=== PATIENT | male | born 1945 | race Caucasian/White ===

== ENCOUNTER 2017-08-31 10:00 | Outpatient (RCR) | payer OTHER, MEDICARE, SELFPAY ==
--- NOTE | 2017-07-25 11:05 | HMH.PTOPEV ---
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 Pt reports L > R sided neck pain, with intermittent radicular s/s down L UE into bicep area. Pt also reports L > R sided LBP with intermittent L LE radicular s/s into L ankle. Imaging studies have revealed degenerative changes in both the lumbar and cervical spine. Chief Complaint Pain Stiff Paresthesia Weakness Symptom Type Ache Throb Sharp Dull Numbness Tingling Symptoms Relieved By Rest/Positioning Heat Symptoms Aggravated By Standing Bending/Stooping Physical Activity Lifting Prior Functional Limitations Lifting Housework Standing Bending/Stooping Current Functional Limitations Lifting Housework Standing Bending/Stooping Symptom Description Constant but Variable Level of pain today (0-10) 4 Pain scale - at its best (0-10) 4 Pain scale - at its worst (0-10) 8 Cervical Eval Palpation Cervical Muscles R Cervical Paraspinal L Cervical Paraspinal R CT Junction L CT Junction L Upper Trapezius Cervical/Thoracic Palpation Findings Tenderness Trigger Point Muscle Guarding Posture Head/C-Spine Posture Sitting Position Neutral Position Head/C-Spine Posture Standing Position Neutral Position Flexibility Deficits Upper
== END 2017-08-31 10:01 | disposition home or self-care (01) ==
LOC: PT 10:00
PROVIDERS: Visit Provider Nurse Practitioner Family
DX: M54.5 Low back pain (principal)
CPT/HCPCS: 97010; 97012; 97014; 97035; 97110; G0283

== ENCOUNTER → 2019-07-06 10:56 | Outpatient (CLI) | payer MEDICARE, OTHER, SELFPAY ==
[2019-07-06] VITALS (20 sets, daily range): BP systolic 113–148; BP diastolic 54–74; PULSE 65–74; RESP 16–18; TEMP 36.4–37.1; O2SAT 90–97; BMI 25.8
[2019-07-06 17:19] LABS: Hematocrit 26.5 % (42.0-52.0)
[2019-07-06 17:32] LABS: Hemoglobin 7.9 g/dL (14.1-18.0)
--- NOTE | 2019-07-06 17:45 | PC.NURSE ---
Have paged Dr. Negrete in RE to pts HGB of 7.9. He has been outpatient and recieved 2 units of PRBC's,. Awaiting CB at this time. 1745.
--- NOTE | 2019-07-06 18:03 | PC.NURSE ---
Spoke with Dr. Negrete and he ordered pt to have a repeat peripheral blood draw for a H&H. Have made claudy in lab aware of this. Awaiting lab to draw blood at this time.
[2019-07-06 18:30] LABS: Hematocrit 27.1 % (42.0-52.0); Hemoglobin 7.9 g/dL (14.1-18.0)
--- NOTE | 2019-07-06 18:34 | PC.NURSE ---
Paged Dr. Negrete in RE to HGB still at 7.9 and HCT 27.1. Awaiting cb at this time.
--- NOTE | 2019-07-06 18:54 | INFXCTL.NOTE ---
Did make Dr. Negrete aware of pts H&H as documented on previous note and he stated that pt could be d/cd if stable, which he was and f/[facility]. Did also educate pt and daughter to watch for s/s of bleeding and to come back to ER if symptoms occured. Verbalized understanding. 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 VSS
--- NOTE | 2019-07-06 18:57 | PC.NURSE ---
Addendum entered by Alejandro Pereira RN 07/06/19 19:00: MD is aware of HGB 7.9 and HCT 27.1 Original Note: Spoke with Dr. Negrete and he stated pt could be d/cd if pt was stable in which he was. He stated to f/u mon with [facility] monday. Daughter and pt verbed understanding. Did also educate pt to mx for s/s of bleeding and if they occured to come to ER. Pt asymptomatic upon d/c and VSS. 02 sats 88-97% RA Denied pain/discomfort. Charge and HS aware oif this as well.
== END ==
PROVIDERS: Internal Medicine Adolescent Medicine; PCP Family Medicine; Referring Provider Emergency Medicine; Visit Provider Emergency Medicine
DX: D64.9 Anemia, unspecified (principal); R53.1 Weakness; R53.83 Other fatigue
CPT/HCPCS: 36415; 36430; 85014; 85018; J1642; P9016

== ENCOUNTER 2019-07-26 01:23 | Inpatient (IN) ==
--- NOTE | 2019-07-26 01:33 | Emergency Department Note ---
ED Disposition Clinical Impression: Metastatic sarcoma STEMI (ST elevation myocardial infarction) Qualifiers: Involved coronary artery: unspecified coronary artery Qualified Code(s): I21.3 - ST elevation (STEMI) myocardial infarction of unspecified site Anemia Qualifiers: Anemia type: unspecified type Qualified Code(s): D64.9 - Anemia, unspecified Disposition: Admitted As Inpatient Condition on Discharge: Serious - Critical Care Critical Care Time: Yes Attestation: On , the high probability of a clinically significant, sudden or life threatening deterioration of the following system(s) required my full and direct attention, intervention and personal management. The time I documented below is in addition to time spent performing reported procedures but includes the following listed in this critical care notation. Total Critical Care Time: 30 Vital system(s) involved:: Circulatory Failure My critical care processes included: Assessment & monitoring of V/S, Initial and Re-exams, Data Review/Interpretation, Coordinating Care, Medication Orders and management, Documentation Medical Decision Making - Boaz Inquiry Pt receiving controlled substance: Yes Boaz was queried for this patient: No Reason not queried -: Emergent pt cond-no time Risks and benefits of using a controlled substance: were not discussed with pt by me Vital Signs: 07/26/19 01:24 Temperature 97.8 F Temperature Source Oral Pulse Rate [Right Brachial] 90 Respiratory Rate 18 Blood Pressure [Right Arm] 120/67 Blood Pressure Mean [Right Arm] 84 Blood Pressure Source [Right Arm] Automatic Cuff Blood Pressure Position [Right Arm] Sitting 02 Sat by Pulse Oximetry 93 L Oxygen Delivery Method Room Air - Lab Data Lab Results 07/26/19 01:30: WBC 10.4, RBC 3.26 L, Hgb 7.5 L*, Hct 25.9 L, MCV 79.5 L, MCH 23.1 L, MCHC 29.0 L, RDW 18.2 H, Plt Count 492 H, MPV 7.9, Neut % (Auto) 80.2 H, Lymph % (Auto) 7.2 L, Sullivan % (Auto) 9.6 H, Eos % (Auto) 2.7, Baso % (Auto) 0.3, Neut # (Auto) 8.4 H, Lymph # (Auto) 0.8, Sullivan # (Auto) 1.0, Eos # (Auto) 0.3, Baso # (Auto) 0.0 07/26/19 01:30: Sodium 132 L, Potassium 4.3, Chloride 97 L, Carbon Dioxide 26, Anion Gap 13.3, BUN 25 H, Creatinine 0.90, Estimated Creat Clear 76, Estimated GFR 83, Est GFR ( Amer) 100, Glucose 301 H, Calcium 8.2 L Result diagrams: 07/26/19 01:30 07/26/19 01:30 Orders (Tests/Meds): ED MEDICATIONS Discontinued Medications Generic Name Dose Route Start Last Admin Trade Name Killian PRN Reason Stop Dose Admin Aspirin 324 mg 07/26/19 01:40 07/26/19 01:51 Aspirin 81mg Chewable Tablet PO 07/26/19 01:41 Not Given ONCE ONE Heparin Sodium (Porcine) 8,200 unit 07/26/19 01:39 07/26/19 01:50 Heparin Sodium 5,000 Units/Ml Vial 100 unit/kg (8200 unit) 07/26/19 01:40 Not Given IV ONCE ONE Morphine Sulfate 4 mg 07/26/19 01:45 07/26/19 01:56 Morphine 4mg/Ml Syringe IV 07/26/19 01:46 4 mg ONCE ONE Administration Ondansetron HCl 4 mg 07/26/19 01:45 07/26/19 01:56 Zofran 4mg/2ml Vial IV 07/26/19 01:46 4 mg ONCE ONE Administration Ticagrelor 180 mg 07/26/19 01:38 07/26/19 01:50 Brilinta 90mg Tablet PO 07/26/19 01:39 Not Given ONCE ONE ORDERS Category Date Time Status Chest XR -- portable [XR chest portable] Stat Exams 07/26/19 01:41 Ordered Troponin I Q3H Lab 07/26/19 04:45 Ordered Troponin I Q3H Lab 07/26/19 07:45 Ordered Troponin I Stat Lab 07/26/19 01:30 Received - Radiology Data #1 Image(s): Chest Image Reviewed: Yes I reviewed the patient's radiology image Pulmonary fibrosis - Physician Consults Physician Consulted: Jaret Time: 01:30 Reason -: Cardiology Eval/Care Comment/Response: Initially, he recommended heparin, Brilinta, aspirin, but after it was discovered that the patient had bleeding ulcers, had been taken off of all blood thinners, and was in palliative care with his medications being stopped, he discussed the case with Dr. Bhandari and both release of information clerk feel that he should not be taken to the [facility] and should be treated with comfort care measures only. The patient is agreeable with that. Additional Consult: Lakeisha Time: 01:53 Reason -: Admission Comment/Response: Patient prefers to be admitted here and not transferred to the [facility]. The patient is agreeable to having a transfusion. Agrees to admit the patient to the hospital. We discussed the patient's clinical information, including history, exam, laboratory and radiology results and ED course. Per hospital procedure, I will write temporary bridge inpatient orders on the patient. Specific orders requested by the admitting physician: Transfuse packed red blood cells. Oxygen, morphine, comfort measures. Medical Decision Narrative: I spoke with Dr. Hogue, who is on-call for STEMI. He in turn spoke with Dr. Bhandari. General Adult HPI - General Chief complaint: Chest Pain Stated complaint: chest pain Time Seen by Provider: 07/26/19 01:23 - History of Present Illness HPI narrative: Patient is brought in by his daughter for chest pain. He says it started about midnight. Associated with shortness of breath, nausea. Denies diaphoresis or radiation. Feels like a rope tied around his chest. Daughter states that he had an PA in May of this year. Hospitalized at the [facility]. She says they discussed doing a heart cath with oncology, but it was decided not to do a heart cath. Prior to that no history of PA. The patient has metastatic sarcoma. He is in hospice. He is DNR. However, he does want treatment for his heart attack and does want a heart cath if indicated. Daughter also states that he was taken off of any of his medications after his PA at the [facility]. He was on Xarelto for blood clots. He was on blood pressure medication. He had bleeding ulcers from cancer spread to his stomach. She says that "they removed that ulcer" but took him off of all of his blood thinners. She says he was seen here recently by Dr. Champion and was found to be anemic and had a transfusion the next day. She says that he has had 2 transfusions since his PA. She says both transfusions were before he was put into hospice, but the patient says he would still like to be transfused if needed. - Related Data Home Medications Medication Instructions Recorded Confirmed cyanocobalamin (vitamin B-12) 1,000 mcg PO ONCE 08/07/17 07/05/19 1,000 mcg capsule gabapentin 400 mg capsule 800 mg PO TID 08/07/17 07/05/19 ibuprofen 800 mg tablet 800 mg PO TID 08/07/17 07/05/19 lisinopril 20 mg tablet 20 mg PO ONCE 08/07/17 07/05/19 metformin 850 mg tablet 850 mg PO BID 08/07/17 07/05/19 omeprazole 20 mg capsule,delayed 20 mg PO ONCE 08/07/17 07/05/19 release Atorvastatin Calcium [Atorvastatin 40 mg PO HS 07/05/19 07/05/19 40mg Tab] Clopidogrel Bisulfate [Plavix 75mg 75 mg PO DAILY 07/05/19 07/05/19 Tab] Dextran/Hypromellose/Glycerin 1 drp OP QID PRN 07/05/19 07/05/19 [Genteal Tears 0.1%-0.2%-0.3%] Duloxetine HCl [Cymbalta 30mg 60 mg PO DAILY 07/05/19 07/05/19 capsule] Famotidine [Pepcid] 40 mg PO HS 07/05/19 07/05/19 Ferrous Sulfate [Iron] 325 mg PO DAILY 07/05/19 07/05/19 Insulin Glargine,Hum.rec.anlog 32 unit SQ DAILY 07/05/19 07/05/19 [Lantus Solostar 100 Units/mL 3mL flexpen] Levothyroxine Sodium 175 mcg PO DAILY 07/05/19 07/05/19 [Levothyroxine 175mcg (0.175mg) Tab] Lidocaine [Lidocaine 5% ointment 1 gm TOPICAL DIRECTED 07/05/19 07/05/19 35gm tube] Naloxone HCl [Narcan] 4 mg NS NEEDED PRN 07/05/19 07/05/19 Polyethylene Glycol 3350 17 gm PO DAILY 07/05/19 07/05/19 [Powderlax] Prochlorperazine Maleate 10 mg PO Q8 PRN 07/05/19 07/05/19 [Compazine] Rivaroxaban [Xarelto 20mg Tablet*] 20 mg PO DAILY 07/05/19 07/05/19 Sennosides/Docusate Sodium 2 each PO BID 07/05/19 07/05/19 [Docusate Sodium-Senna Tablet] Simethicone [Gas Relief 80] 80 mg PO BID PRN 07/05/19 07/05/19 carvediloL [Carvedilol 6.25mg Tab] 6.25 mg PO BID 07/05/19 07/05/19 Allergies Allergy/AdvReac Type Severity Reaction Status Date / Time No Known Allergies Allergy Unknown Uncoded 08/07/17 14:08 [facility] History - Hepatitis A Screen Attestation statement:: This patient has been screened for Hepatitis A risk factors. Medical History: Reports:: Anxiety, Cancer, Depression, Diabetes Mellitus Type 2, Gastroesophageal Reflux Disease(GERD), Hypertension Denies:: Diabetes Mellitus Type 1 Other Medical History: Reports: Cataracts, Thyroid Disease Laterality Cases: Bilateral: Carpal Tunnel Release, Tonsillectomy Other Surgeries: Yes: Appendectomy, Hernia Repair - Social History Smoking Status: Former smoker Alcohol Intake: never Substance Use Type: denies use Occupational Status: retired - Psychiatric History Pschychiatric History:: Reports:: Anxiety, Depression Family Hx:: Coronary Artery Disease ROS Obtained: Yes All systems reviewed & no additional complaints - Cardiovascular Cardiovascular: Reports chest pain, Denies diaphoresis, Denies radiating jaw, neck or arm pain - Respiratory Respiratory: Yes dyspnea - Gastrointestinal Gastrointestingal: Reports: nausea Physical Exam - General General appearance: alert, in no apparent distress - Head Head exam: atraumatic, normocephalic - Eye Eye exam: Present: normal appearance, EOMI - ENT ENT exam: Present: mucous membranes moist - Neck Neck exam: Present: normal inspection, trachea midline - Chest Chest inspection: Present: normal inspection, symmetric chest wall rise - Respiratory Respiratory exam: Present: normal lung sounds bilaterally. Absent: respiratory distress - Cardiovascular Cardiovascular exam: Present: regular rate, normal rhythm, normal heart sounds - Abdominal Exam Abdominal exam: Present: soft. Absent: distention, tenderness - Extremities Exam Extremities exam: Present: normal inspection - Neurological Exam Neurological exam: Present: alert, oriented X3 - Psychiatric Psychiatric exam: Present: normal affect, normal mood - Skin Skin exam: Present: warm, dry, pallor
[2019-07-26 01:42] LABS: Basophils % 0.3 % (0.1-2.0); Eosinophils # 0.3 K/mm3 (0.0-0.4); Eosinophils % 2.7 % (0.1-12.0); Hematocrit 25.9 % (42.0-52.0); Lymphocytes # 0.8 K/mm3 (0.7-4.5); Lymphocytes % 7.2 % (10-50); Mean Corpuscular Volume 79.5 fl (80-94); Mean Platelet Volume 7.9 fl (7.4-10.4); Monocytes % 9.6 % (1.7-9.3); Neutrophils # 8.4 K/mm3 (1.8-7.8); Neutrophils % 80.2 % (37.0-80.0); Platelet Count 492 K/mm3 (142-424); Red Blood Count 3.26 M/mm3 (4.60-6.20); Red Cell Distribution Width 18.2 % (11.5-17.5); White Blood Count 10.4 K/mm3 (4.8-10.8)
[2019-07-26 01:46] LABS: Hemoglobin 7.5 g/dL (14.1-18.0)
[2019-07-26 01:50] LABS: Anion Gap 13.3 mEq/L (5-15); Calcium 8.2 mg/dl (8.4-10.2)
--- NOTE | 2019-07-26 07:59 | Consult Report ---
History of Present Illness Consult date: 07/26/19 Requesting physician: Ck Suazo Consult reason: chest pain Chief complaint: STEMI Additional Medical History:: 1. Coronary artery disease with recent myocardial infarction, 05/2019, medical therapy and elected due to the patient's metastatic cancer 2. Diabetes mellitus, treated for about 15 years 3. History of tobacco use 4. Hypertension 5. Hyperlipidemia 6. 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 Brief therapy with radiation and chemotherapy discontinued due to further metastasis. 7. DNR with hospice 8. History of DVT of the left leg, treated with Xarelto therapy until 2 months ago 9. Recurrent GI bleed and anemia History of present illness: 74-year-old white male admitted through the emergency department due to ST elevation AK. Patient relates onset of chest discomfort last evening that progressed to the point of contacting family for help. Patient lives alone and has recently suffered a myocardial infarction 2 months ago. After discovering that his sarcoma had further metastasized despite chemo and radiation, palliative therapy was recommended and patient enrolled in hospice. His prior AK symptoms included left arm discomfort. Last night it was chest discomfort. EKG in the ER showed ST elevation in the high lateral leads. Due to the patient's recurrent GI bleed requiring transfusion, medical therapy/palliative therapy recommended by both Dr. Hogue and Dr. Bhandari and again accepted by the patient and his family. Patient has now received almost 2 units of blood an d is feeling well. He is sitting up at bedside eating breakfast. States he is ready to go home. No arrhythmias noted overnight. [facility] History Medical History: Reports:: Anxiety, Cancer, Coronary Artery Disease, Deep Vein Thrombosis, Depression, Diabetes Mellitus Type 2, Gastroesophageal Reflux Disease(GERD), Hyperlipidemia, Hypertension, Myocardial Infarction (x2) Denies:: Diabetes Mellitus Type 1, MRSA *Have you ever received a pneumonia vaccine?: Yes *Have you received a flu vaccine this season?: Yes Other Medical History: Reports: Anemia (recent blood tranfusions), Arthritis, Cataracts, Radiation Therapy, Thyroid Disease Laterality Cases: Bilateral: Carpal Tunnel Release, Tonsillectomy Other Surgeries: Yes: Appendectomy, Colonoscopy, EGD, Hernia Repair, Other Amputation: No - *Social History Educational Level: Attended College Smoking Status: Former smoker Tobacco Type: cigarettes # Packs/Day (cigarettes): 4 #Yrs smoked (if former smoker): 36 Smoking End Date: 11/01/1998 Alcohol Intake: former Alcohol Intake Frequency:: holidays/special occasions only Substance Use Type: denies use *Occupational Status:: retired Housing: house Household Members: none *Travel in the last 8 weeks: None - Psychiatric History Pschychiatric History:: Reports:: Anxiety, Depression Family Hx:: Cancer, Coronary Artery Disease, Diabetes Meds Home Medications Medication Instructions Recorded Confirmed Type gabapentin 400 mg capsule 800 mg PO TID 08/07/17 07/05/19 History metformin 850 mg tablet 850 mg PO BID 08/07/17 07/05/19 History omeprazole 20 mg capsule,delayed 20 mg PO BID 08/07/17 07/05/19 History release Dextran/Hypromellose/Glycerin 1 drp OP QID PRN 07/05/19 07/05/19 History [Genteal Tears 0.1%-0.2%-0.3%] Duloxetine HCl [Cymbalta 30mg 30 mg PO DAILY 07/05/19 07/05/19 History capsule] Famotidine [Pepcid] 40 mg PO HS 07/05/19 07/05/19 History Ferrous Sulfate [Iron] 325 mg PO QODHS 07/05/19 07/05/19 History Insulin Glargine,Hum.rec.anlog 32 unit SQ DAILY 07/05/19 07/05/19 History [Lantus Solostar 100 Units/mL 3mL flexpen] Levothyroxine Sodium 175 mcg PO DAILY 07/05/19 07/05/19 History [Levothyroxine 175mcg (0.175mg) Tab] Lidocaine [Lidocaine 5% ointment 1 gm TOPICAL DIRECTED 07/05/19 07/05/19 History 35gm tube] Naloxone HCl [Narcan] 4 mg NS NEEDED PRN 07/05/19 07/05/19 History Polyethylene Glycol 3350 17 gm PO BID 07/05/19 07/05/19 History [Powderlax] Prochlorperazine Maleate 10 mg PO Q8 PRN 07/05/19 07/05/19 History [Compazine] Sennosides/Docusate Sodium 2 each PO BID 07/05/19 07/05/19 History [Docusate Sodium-Senna Tablet] Simethicone [Gas Relief 80] 80 mg PO BID PRN 07/05/19 07/05/19 History Hydrocodone/Acetaminophen [Lortab 1 tab PO Q8HP PRN 07/26/19 07/26/19 History 7.5/325mg tablet] fentaNYL [fentaNYL 25mcg/patch] 25 mcg TD Q72H 07/26/19 07/26/19 History Allergies Allergy/AdvReac Type Severity Reaction Status Date / Time No Known Allergies Allergy Unknown Uncoded 08/07/17 14:08 Review of Systems - Review of Systems Review of systems:: pertinent systems reviewed and negative unless documented below - *Cardiovascular Reports chest pain, Reports shortness of breath with activity - *Respiratory Reports shortness of breath with activity - *Gastrointestinal Reports black, tarry stools, Reports nausea, Denies abdominal pain, Denies vomiting - *Genitourinary Denies blood in urine - *Musculoskeletal Denies joint pain, Denies back pain Exam Vital signs and Labs for Last 24 Hours: Temp Pulse Resp BP Pulse Ox 97.9 F 64 18 103/52 L 95 07/26/19 07:20 07/26/19 07:20 07/26/19 07:20 07/26/19 07:20 07/26/19 07:20 Laboratory Results - last 24 hr 07/26/19 01:30: WBC 10.4, RBC 3.26 L, Hgb 7.5 L*, Hct 25.9 L, MCV 79.5 L, MCH 23.1 L, MCHC 29.0 L, RDW 18.2 H, Plt Count 492 H, MPV 7.9, Neut % (Auto) 80.2 H, Lymph % (Auto) 7.2 L, Clinton % (Auto) 9.6 H, Eos % (Auto) 2.7, Baso % (Auto) 0.3, Neut # (Auto) 8.4 H, Lymph # (Auto) 0.8, Clinton # (Auto) 1.0, Eos # (Auto) 0.3, Baso # (Auto) 0.0 07/26/19 01:30: Troponin I 3.26 H 07/26/19 01:30: Sodium 132 L, Potassium 4.3, Chloride 97 L, Carbon Dioxide 26, Anion Gap 13.3, BUN 25 H, Creatinine 0.90, Estimated Creat Clear 76, Estimated GFR 83, Est GFR ( Amer) 100, Glucose 301 H, Calcium 8.2 L 07/26/19 02:35: Blood Type O Positive, Antibody Screen Negative, Crossmatch (AHG) See Detail 07/26/19 05:00: Troponin I 3.34 H 07/26/19 05:17: POC Glucose 411 H* I & O for Last 24 hours: Intake & Output 07/23/19 07/24/19 07/25/19 07/26/19 11:59 11:59 11:59 11:59 Intake Total 47 / Balance 47 Weight 179 lb 7 oz - *Routine HEENT Exam Head: Present: normocephalic Eye: Present: EOMI, PERRL ENT: Present: mucous membranes moist - *Routine Neck Exam Present: supple. Absent: JVD, carotid bruit - *Routine Respiratory Exam Present: decreased breath sounds, rhonchi. Absent: accessory muscle use, rales, wheezes - *Routine Cardiovascular Exam Present: RRR. Absent: murmur, gallop, rubs - *Routine Abdominal Exam Present: soft. Absent: tenderness, distended, guarding - *Routine Extremities Exam Absent: edema, calf tenderness - *Routine Neurological Exam Present: alert, oriented X3, moving all extremities Assessment and Plan (1) STEMI (ST elevation myocardial infarction) Current visit: Yes Status: Acute Qualifiers: Involved coronary artery: unspecified coronary artery Qualified Code(s): I21.3 - ST elevation (STEMI) myocardial infarction of unspecified site Category: Medical Code(s): I21.3 - ST elevation (STEMI) myocardial infarction of unspecified site (2) Anemia Current visit: Yes Status: Acute Qualifiers: Anemia type: unspecified type Qualified Code(s): D64.9 - Anemia, unspecified Category: Medical Code(s): D64.9 - Anemia, unspecified (3) Metastatic sarcoma Current visit: Yes Status: Acute Category: Medical Code(s): C79.89 - Secondary malignant neoplasm of other specified sites (4) RBBB Current visit: No Status: Acute Category: Medical Code(s): I45.10 - Unspecified right bundle-branch block (5) Weakness Current visit: No Status: Acute Category: Medical Code(s): R53.1 - Weakness - Assessment and plan all Dx Assessment and Plan for all problems:: 1. ST elevation AK in a patient with metastatic sarcoma. Agree with palliative care. Patient continues to be in hospice. Unable to add aspirin, Brilinta or other anticoagulation due to recurrent GI bleed and severe anemia requiring transfusion. Patient's blood pressure is borderline low and due to high risk for fall would prevent institution of beta-guerda or LIT inhibitor. Consider statin therapy for plaque stabilization, otherwise no further recommendations. 2. Pt could be discharged home from cardiology standpoint when ready.
--- NOTE | 2019-07-26 08:42 | Electrocardiograph Report ---
APPROVED REPORT Exam: Resting ECG HR:85 bpm ECG Measurements Heart Rate 85 AXES WI 162 P 24 QRSd 140 QRS -28 QT 408 T11 QTc 485 <Conclusion> Normal sinus rhythm Right bundle branch block ST elevation, consider lateral injury or acute infarct ACUTE NM Abnormal ECG Electronically signed by : Smith Vanegas, 07/26/2019 08:41:58
--- NOTE | 2019-07-26 08:57 | History & Physical Report ---
*Admission Date: 07/26/19 <Denise Cuba 07/26/19 09:03> *Chief complaint: chest pain <Denise Cuba 07/26/19 09:03> *History of present illness: Mr. Weir is a 74-year-old white male who presented to the emergency room last night with a sudden onset of chest pain. He states he felt a pain that was banded around his entire chest. He became short of breath and was nauseated and diaphoretic. He lives alone and recently suffered an MT 2 months ago. He called his daughter who transported him to the emergency room. 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 Cardiology decided to forego heart catheterization due to this. [facility] now [facility] to [facility] due to his cancer. His daughter states he had sarcoma behind the left knee which has now spread to his lungs, his stomach, and his intestines. He has chronic bleeding in his stomach that causes him to be anemic and need blood transfusions. He was anemic on admission and received 2 units of blood. At this time the patient is feeling much better. He has had no further chest pain and his shortness of breath and nausea have resolved. He feels better after receiving blood. 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, stomach, and intestines), Coronary Artery Disease, Deep Vein Thrombosis, Depression, Diabetes Mellitus Type 2, Gastroesophageal Reflux Disease(GERD), Hyperlipidemia, Hypertension, Myocardial Infarction (x2) Denies:: Diabetes Mellitus Type 1, MRSA <Denise Cuba 07/26/19 09:03> *Have you ever received a pneumonia vaccine?: Yes <Denise Cuba 07/26/19 09:03> *Have you received a flu vaccine this season?: Yes <Denise Cuba 07/26/19 09:03> Other Medical History: Reports: Anemia (recent blood tranfusions), Arthritis, Cataracts, Radiation Therapy, Thyroid Disease <Denise Cuba 07/26/19 09:03> Laterality Cases: Bilateral: Carpal Tunnel Release, Cataract, Tonsillectomy <Denise Cuba 07/26/19 09:03> Other Surgeries: Yes: Appendectomy, Colonoscopy, EGD, Hernia Repair, Other (parathyroid removal, [place] hearing aid) <Denise Cuba 07/26/19 09:03> Amputation: No <Denise Cuba 07/26/19 09:03> - *Social History Educational Level: Attended College <Denise Cuba 07/26/19 09:03> Smoking Status: Former smoker <Denise Cuba 07/26/19 09:03> Tobacco Type: cigarettes <Denise Cuba 07/26/19 09:03> # Packs/Day (cigarettes): 4 <Denise Cuba 07/26/19 09:03> #Yrs smoked (if former smoker): 36 <Denise Cuba 07/26/19 09:03> Smoking End Date: 11/01/1998 <Denise Cuba 07/26/19 09:03> Alcohol Intake: former <Denise Cuba 07/26/19 09:03> Alcohol Intake Frequency:: holidays/special occasions only <Denise Cuba 07/26/19 09:03> Substance Use Type: denies use <Denise Cuba 07/26/19 09:03> *Occupational Status:: retired <Denise Cuba 07/26/19 09:03> Housing: house <Denise Cuba 07/26/19 09:03> Household Members: none <Denise Cuba 07/26/19 09:03> *Travel in the last 8 weeks: None <Denise Cuba 07/26/19 09:03> - Psychiatric History Pschychiatric History:: Reports:: Anxiety, Depression <Denise Cuba 07/26/19 09:03> Family Hx:: Cancer, Coronary Artery Disease, Diabetes <Denise Cuba 07/26/19 09:03> Review of Systems - Constitutional Reports chills, Reports weakness, Denies fever(s) <Denise Cuba 07/26/19 09:03> - Eyes Denies blurry vision, Denies double vision <Denise Cuba - 07/26/19 09:03> - ENT Reports nasal congestion, Denies sore throat <Denise Cuba 07/26/19 09:03> - *Cardiovascular Reports chest pain, Reports excessive sweating, Reports shortness of breath, Denies leg swelling <Denise Cuba 07/26/19 09:03> - *Respiratory Reports cough, Reports shortness of breath <Denise Cuba 07/26/19 09:03> - *Gastrointestinal Reports constipation, Reports nausea, Denies abdominal pain, Denies loose stools, Denies vomiting <Denise Cuba 07/26/19 09:03> - *Genitourinary Denies difficulty urinating, Denies painful urination <Denise Cuba 07/26/19 09:03> - *Musculoskeletal Denies joint pain, Denies back pain <Denise Cuba 07/26/19 09:03> - *Neurologic Denies headache(s), Denies dizziness, Denies weakness <Denise Cuba 07/26/19 09:03> Meds Home Medications Medication Instructions Recorded Confirmed Type gabapentin 400 mg capsule 800 mg PO TID 08/07/17 07/26/19 History metformin 850 mg tablet 850 mg PO BID 08/07/17 07/26/19 History omeprazole 20 mg capsule,delayed 20 mg PO BID 08/07/17 07/26/19 History release Dextran/Hypromellose/Glycerin 1 drp OP QID PRN 07/05/19 07/26/19 History [Genteal Tears 0.1%-0.2%-0.3%] Duloxetine HCl [Cymbalta 30mg 30 mg PO DAILY 07/05/19 07/26/19 History capsule] Famotidine [Pepcid] 40 mg PO HS 07/05/19 07/26/19 History Ferrous Sulfate [Iron] 325 mg PO QODHS 07/05/19 07/26/19 History Insulin Glargine,Hum.rec.anlog 32 unit SQ DAILY 07/05/19 07/26/19 History [Lantus Solostar 100 Units/mL 3mL flexpen] Levothyroxine Sodium 175 mcg PO DAILY 07/05/19 07/26/19 History [Levothyroxine 175mcg (0.175mg) Tab] Lidocaine [Lidocaine 5% ointment 1 gm TOPICAL DIRECTED 07/05/19 07/26/19 History 35gm tube] Naloxone HCl [Narcan] 4 mg NS NEEDED PRN 07/05/19 07/26/19 History Polyethylene Glycol 3350 17 gm PO BID 07/05/19 07/26/19 History [Powderlax] Prochlorperazine Maleate 10 mg PO Q8 PRN 07/05/19 07/26/19 History [Compazine] Sennosides/Docusate Sodium 2 each PO BID 07/05/19 07/26/19 History [Docusate Sodium-Senna Tablet] Simethicone [Gas Relief 80] 80 mg PO BID PRN 07/05/19 07/26/19 History Hydrocodone/Acetaminophen [Lortab 1 tab PO Q8HP PRN 07/26/19 07/26/19 History 7.5/325mg tablet] fentaNYL [fentaNYL 25mcg/patch] 25 mcg TD Q72H 07/26/19 07/26/19 History <Ck Suazo - 07/26/19 12:45> Allergies Allergy/AdvReac Type Severity Reaction Status Date / Time No Known Allergies Allergy Unknown Uncoded 08/07/17 14:08 <Ck Suazo - 07/26/19 12:45> Exam Vital signs and Labs for Last 24 Hours: Temp Pulse Resp BP Pulse Ox 98.3 F 67 20 105/64 L 97 07/26/19 09:19 07/26/19 09:19 07/26/19 09:19 07/26/19 09:19 07/26/19 09:19 Laboratory Results - last 24 hr 07/26/19 01:30: WBC 10.4, RBC 3.26 L, Hgb 7.5 L*, Hct 25.9 L, MCV 79.5 L, MCH 23.1 L, MCHC 29.0 L, RDW 18.2 H, Plt Count 492 H, MPV 7.9, Neut % (Auto) 80.2 H, Lymph % (Auto) 7.2 L, [place] % (Auto) 9.6 H, Eos % (Auto) 2.7, Baso % (Auto) 0.3, Neut # (Auto) 8.4 H, Lymph # (Auto) 0.8, [place] # (Auto) 1.0, Eos # (Auto) 0.3, Baso # (Auto) 0.0 07/26/19 01:30: Troponin I 3.26 H 07/26/19 01:30: Sodium 132 L, Potassium 4.3, Chloride 97 L, Carbon Dioxide 26, Anion Gap 13.3, BUN 25 H, Creatinine 0.90, Estimated Creat Clear 76, Estimated GFR 83, Est GFR ( Amer) 100, Glucose 301 H, Calcium 8.2 L 07/26/19 02:35: Blood Type O Positive, Antibody Screen Negative, Crossmatch (AHG) See Detail 07/26/19 05:00: Troponin I 3.34 H 07/26/19 05:17: POC Glucose 411 H* 07/26/19 09:58: Hgb 9.3 L D, Hct 31.5 L 07/26/19 10:54: POC Glucose 205 H <Ck Suazo - 07/26/19 12:45> Temp Pulse Resp BP Pulse Ox 97.9 F 64 18 103/52 L 95 07/26/19 07:20 07/26/19 07:20 07/26/19 07:20 07/26/19 07:20 07/26/19 07:20 Laboratory Results - last 24 hr 07/26/19 01:30: WBC 10.4, RBC 3.26 L, Hgb 7.5 L*, Hct 25.9 L, MCV 79.5 L, MCH 23.1 L, MCHC 29.0 L, RDW 18.2 H, Plt Count 492 H, MPV 7.9, Neut % (Auto) 80.2 H, Lymph % (Auto) 7.2 L, [place] % (Auto) 9.6 H, Eos % (Auto) 2.7, Baso % (Auto) 0.3, Neut # (Auto) 8.4 H, Lymph # (Auto) 0.8, [place] # (Auto) 1.0, Eos # (Auto) 0.3, Baso # (Auto) 0.0 07/26/19 01:30: Troponin I 3.26 H 07/26/19 01:30: Sodium 132 L, Potassium 4.3, Chloride 97 L, Carbon Dioxide 26, Anion Gap 13.3, BUN 25 H, Creatinine 0.90, Estimated Creat Clear 76, Estimated GFR 83, Est GFR ( Amer) 100, Glucose 301 H, Calcium 8.2 L 07/26/19 02:35: Blood Type O Positive, Antibody Screen Negative, Crossmatch (AHG) See Detail 07/26/19 05:00: Troponin I 3.34 H 07/26/19 05:17: POC Glucose 411 H* <Denise Cuba - 07/26/19 09:03> I & O for Last 24 hours: Intake & Output 07/24/19 07/25/19 07/26/19 07/27/19 11:59 11:59 11:59 11:59 Intake Total 802 / 802 Balance 802 / 802 Weight 179 lb 7 oz <Ck Suazo - 07/26/19 12:45> Intake & Output 07/23/19 07/24/19 07/25/19 07/26/19 11:59 11:59 11:59 11:59 Intake Total 47 / 47 Balance 47 / 47 Weight 179 lb 7 oz <Denise Cuba - 07/26/19 09:03> - Constitutional no acute distress <Denise Cuba 07/26/19 09:03> - *Routine HEENT Exam Head: Present: normocephalic <Denise Cuba 07/26/19 09:03> Eye: Present: EOMI, PERRL <Denise Cuba 07/26/19 09:03> ENT: Present: mucous membranes moist <Denise Cuba 07/26/19 09:03> - *Routine Neck Exam Present: supple. Absent: lymphadenopathy <Denise Cuba 07/26/19 09:03> - *Routine Respiratory Exam Present: CTA bilaterally <Denise Cuba 07/26/19 09:03> - *Routine Cardiovascular Exam Present: RRR <Denise Cuba 07/26/19 09:03> - *Routine Abdominal Exam Present: soft, normoactive bowel sounds. Absent: tenderness <Denise Cuba 07/26/19 09:03> Comments: masses palpable throughout the abdomen <Denise Cuba - 07/26/19 09:03> - *Routine Extremities Exam Absent: cyanosis, clubbing, edema <Denise Cuba - 07/26/19 09:03> - *Routine Skin Exam Present: warm. Absent: rash <Denise Cuba - 07/26/19 09:03> - *Routine Neurological Exam Present: alert, oriented X3 <Denise Cuba 07/26/19 09:03> H&P: Result - Impressions CXR - Chronic changes. No change with no acute finding compared to <Denise Cuba - 07/26/19 09:03> Assessment and Plan (1) STEMI (ST elevation myocardial infarction) Current visit: Yes Status: Acute Qualifiers: Involved coronary artery: unspecified coronary artery Qualified Code(s): I21.3 - ST elevation (STEMI) myocardial infarction of unspecified site Category: Medical Code(s): I21.3 - ST elevation (STEMI) myocardial infarction of unspecified site (2) Anemia Current visit: Yes Status: Acute Qualifiers: Anemia type: unspecified type Qualified Code(s): D64.9 - Anemia, unspecified Category: Medical Code(s): D64.9 - Anemia, unspecified (3) Metastatic sarcoma Current visit: Yes Status: Acute Category: Medical Code(s): C79.89 - Secondary malignant neoplasm of other specified sites (4) RBBB Current visit: No Status: Acute Category: Medical Code(s): I45.10 - Unspecified right bundle-branch block (5) Weakness Current visit: No Status: Acute Category: Medical Code(s): R53.1 - Weakness <Denise Cuba - 07/26/19 08:53> (1) STEMI (ST elevation myocardial infarction) Current visit: Yes Status: Acute Qualifiers: Involved coronary artery: unspecified coronary artery Qualified Code(s): I21.3 - ST elevation (STEMI) myocardial infarction of unspecified site Category: Medical Code(s): I21.3 - ST elevation (STEMI) myocardial infarction of unspecified site (2) Anemia Current visit: Yes Status: Acute Qualifiers: Anemia type: unspecified type Qualified Code(s): D64.9 - Anemia, unspecified Category: Medical Code(s): D64.9 - Anemia, unspecified (3) Metastatic sarcoma Current visit: Yes Status: Acute Category: Medical Code(s): C79.89 - Secondary malignant neoplasm of other specified sites (4) RBBB Current visit: No Status: Acute Category: Medical Code(s): I45.10 - Unspecified right bundle-branch block (5) Weakness Current visit: No Status: Acute Category: Medical Code(s): R53.1 - Weakness <Ck Suazo - 07/26/19 12:45> - Assessment and plan all Dx Assessment and Plan for all problems:: Patient seen and examined this morning. He feels much better after receiving the blood. Awaiting posttransfusion H&H. No further chest pain. Cardiology consultation and recommendations appreciated. <Ck Suazo - 07/26/19 12:45> We will get a repeat H&H since blood transfusion has been completed. No cardiology intervention is going to be done due to patient's hospice status. Can possibly discharge home soon. <Denise Cuba - 07/26/19 09:03>
[2019-07-26 10:06] LABS: Hematocrit 31.5 % (42.0-52.0)
[2019-07-26 10:07] LABS: Hemoglobin 9.3 g/dL (14.1-18.0)
--- NOTE | 2019-07-26 10:18 | Pharmacy Consult Notes ---
[facility] Pharmacy VTE Monitoring - Patient Demographics Admission date: 07/25/19 Report Date: 07/26/19 Time: 10:17 Allergies/Adverse Reactions: Patient Allergies No Known Allergies Allergy (Unknown, Uncoded 08/07/17 14:08) Height: 1.83 m Weight: 81.391 kg Patient Problems: Current Active Problems Anemia (Acute) STEMI (ST elevation myocardial infarction) (Acute) Metastatic sarcoma (Acute) - VTE Risk Labs: VTE Related Lab Results Hgb 9.3 g/dL (14.1-18.0) L D 07/26/19 09:58 Hct 31.5 % (42.0-52.0) L 07/26/19 09:58 Plt Count 492 K/mm3 (142-424) H 07/26/19 01:30 BUN 25 mg/dl (9-20) H 07/26/19 01:30 Creatinine 0.90 mg/dl (0.66-1.25) 07/26/19 01:30 Estimated Creat Clear 76 mL/min (50-200) 07/26/19 01:30 Was VTE Risk Assessment Performed: Yes VTE Score: 10 VTE Risk Level: Moderate Risk Clinical Trial Participant: No - Prophylaxis VTE Prophylaxis Ordered?: Yes Types of VTE Prophylaxis: TEDS Knee High Location of Applied Device: Bilateral Lower Extremeties
--- NOTE | 2019-07-29 12:25 | Discharge Summary ---
General - General Admission date:: 07/26/19 <Ck Suazo - 08/03/19 08:49> 07/26/19 <Denise Cuba - 07/29/19 12:25> Discharge date: 07/26/19 <Denise Cuba - 07/29/19 12:25> HPI HPI: Mr. Weir is a 74-year-old white male who presented to the emergency room last night with a sudden onset of chest pain. He states he felt a pain that was banded around his entire chest. He became short of breath and was nauseated and diaphoretic. He lives alone and recently suffered an ND 2 months ago. He called his daughter who transported him to the emergency room. 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 Cardiology decided to forego heart catheterization due to this. [facility] but has now been [facility] to hosp[facility] due to his cancer. His daughter states he had sarcoma behind the left knee which has now spread to his lungs, his stomach, and his intestines. He has chronic bleeding in his stomach that causes him to be anemic and need blood transfusions. He was anemic on admission and received 2 units of blood. <Denise Cuba - 07/29/19 12:25> Hospital Course Hospital Course: The patient's initial chest x-ray showed chronic changes with nothing acute. Cardiology felt no intervention was necessary due to the patient's hospice status. He felt much better after receiving 2 units of blood and had a posttransfusion H&H. His H&H improved from 7.5 and 25.9 to 9.3 and 31.5. He was stable to be discharged home back under the care of hospice. <Denise Cuba - 07/29/19 12:25> Objective Vital signs: Temp Pulse Resp BP Pulse Ox 98.7 F 67 17 114/58 L 95 07/26/19 12:07/26/19 12:07/26/19 12:00 07/26/19 12:07/26/19 12:00 <LakeishaCk Roberto - 08/03/19 08:49> Temp Pulse Resp BP Pulse Ox 98.7 F 67 17 114/58 L 95 07/26/19 12:00 07/26/19 12:00 07/26/19 12:00 07/26/19 12:00 07/26/19 12:00 <Denise Cuba - 07/29/19 12:25> Narrative: - Constitutional no acute distress - *Routine HEENT Exam Head: Present: normocephalic Eye: Present: EOMI, PERRL ENT: Present: mucous membranes moist - *Routine Neck Exam Present: supple. Absent: lymphadenopathy - *Routine Respiratory Exam Present: CTA bilaterally - *Routine Cardiovascular Exam Present: RRR - *Routine Abdominal Exam Present: soft, normoactive bowel sounds. Absent: tenderness Comments: masses palpable throughout the abdomen - *Routine Extremities Exam Absent: cyanosis, clubbing, edema - *Routine Skin Exam Present: warm. Absent: rash - *Routine Neurological Exam Present: alert, oriented X3 <Denise Cuba - 07/29/19 12:25> DS: Diagnosis - Discharge Diagnosis (1) STEMI (ST elevation myocardial infarction) Status: Acute (2) Anemia Status: Acute (3) Metastatic sarcoma Status: Acute (4) RBBB Status: Acute (5) Weakness Status: Acute <Denise Cuba - 07/29/19 12:22> (1) STEMI (ST elevation myocardial infarction) Status: Acute (2) Anemia Status: Acute (3) Metastatic sarcoma Status: Acute (4) RBBB Status: Acute (5) Weakness Status: Acute <Ck Suazo - 08/03/19 08:49> Discharge Plan - Patient Discharge Instructions ACTIVITY: Continue current activity <Denise Cuba - 07/29/19 12:25> DIET: continue same diet <Denise Cuba - 07/29/19 12:25> Patient Instructions: Heart Attack, Anemia <Ck Suazo - 08/03/19 08:49> Forms: <Ck Suazo - 08/03/19 08:49> - Follow up Plan Follow up with: Ck Suazo MD [Staff Physician] - 08/02/19 1:30 pm <Ck Suazo - 08/03/19 08:49> Unknown provider or service follow up:: 07/26/19 13:37 Hospice <Denise Cuba - 07/29/19 12:25> Disposition: Hospice - Home <Ck Suazo - 08/03/19 08:49> Home Medications: Home Medications Medication Instructions Recorded Confirmed Type gabapentin 400 mg capsule 800 mg PO TID 08/07/17 07/26/19 History metformin 850 mg tablet 850 mg PO BID 08/07/17 07/26/19 History omeprazole 20 mg capsule,delayed 20 mg PO BID 08/07/17 07/26/19 History release Dextran/Hypromellose/Glycerin 1 drp OP QID PRN 07/05/19 07/26/19 History [Genteal Tears 0.1%-0.2%-0.3%] Duloxetine HCl [Cymbalta 30mg 30 mg PO DAILY 07/05/19 07/26/19 History capsule] Famotidine [Pepcid] 40 mg PO HS 07/05/19 07/26/19 History Ferrous Sulfate [Iron] 325 mg PO QODHS 07/05/19 07/26/19 History Insulin Glargine,Hum.rec.anlog 32 unit SQ DAILY 07/05/19 07/26/19 History [Lantus Solostar 100 Units/mL 3mL flexpen] Levothyroxine Sodium 175 mcg PO DAILY 07/05/19 07/26/19 History [Levothyroxine 175mcg (0.175mg) Tab] Lidocaine [Lidocaine 5% ointment 1 gm TOPICAL DIRECTED 07/05/19 07/26/19 History 35gm tube] Naloxone HCl [Narcan] 4 mg NS NEEDED PRN 07/05/19 07/26/19 History Prochlorperazine Maleate 10 mg PO Q8 PRN 07/05/19 07/26/19 History [Compazine] Sennosides/Docusate Sodium 2 each PO BID 07/05/19 07/26/19 History [Docusate Sodium-Senna Tablet] Simethicone [Gas Relief 80] 80 mg PO BID PRN 07/05/19 07/26/19 History polyethylene glycoL 3350 17 gm PO BID 07/05/19 07/26/19 History [Powderlax] Hydrocodone/Acetaminophen [Lortab 1 tab PO Q8HP PRN 07/26/19 07/26/19 History 7.5/325mg tablet] fentaNYL [fentaNYL 25mcg/patch] 25 mcg TD Q72H 07/26/19 07/26/19 History Metoprolol Succinate 25 mg PO DAILY #30 tab.er.24h 07/31/19 Rx <Ck Suazo - 08/03/19 08:49> Prescriptions/Medication Reconciliation: Continued omeprazole 20 mg capsule,delayed release 20 mg PO BID metformin 850 mg tablet 850 mg PO BID gabapentin 400 mg capsule 800 mg PO TID Lidocaine [Lidocaine 5% ointment 35gm tube] 1 gm TOPICAL DIRECTED Famotidine [Pepcid] 40 mg PO HS Duloxetine HCl [Cymbalta 30mg capsule] 30 mg PO DAILY Levothyroxine Sodium [Levothyroxine 175mcg (0.175mg) Tab] 175 mcg PO DAILY Dextran/Hypromellose/Glycerin [Genteal Tears 0.1%-0.2%-0.3%] 1 drp OP QID PRN PRN Reason: dry eyes Prochlorperazine Maleate [Compazine] 10 mg PO Q8 PRN PRN Reason: Nausea And Vomiting Hydrocodone/Acetaminophen [Lortab 7.5/325mg tablet] 1 tab PO Q8HP PRN PRN Reason: pain fentaNYL [fentaNYL 25mcg/patch] 25 mcg TD Q72H Naloxone HCl [Narcan] 4 mg NS NEEDED PRN PRN Reason: overdose polyethylene glycoL 3350 [Powderlax] 17 gm PO BID Ferrous Sulfate [Iron] 325 mg PO QODHS Insulin Glargine,Hum.rec.anlog [Lantus Solostar 100 Units/mL 3mL flexpen] 32 unit SQ DAILY Simethicone [Gas Relief 80] 80 mg PO BID PRN PRN Reason: Gas Pain And Discomfort Sennosides/Docusate Sodium [Docusate Sodium-Senna Tablet] 2 each PO BID No Action Metoprolol Succinate 25 mg PO DAILY #30 tab.er.24h <Ck Suazo - 08/03/19 08:49> - Problem Reconciliation Problems Reviewed?: Yes <Ck Suazo - 08/03/19 08:49> Yes <Denise Cuba - 07/29/19 12:25> - Additional Information Additional Information: Concur with plan for discharge as outlined above. <Ck Suazo - 08/03/19 08:49>
== END 2019-07-26 14:10 | disposition hospice, home (50) | DRG 281 ==
LOC: ER 01:23 → 2ND 02:20
PROVIDERS: ADMIT Family Medicine; ATTEND Family Medicine
CPT/HCPCS: 36415; 71010; 71045; 80048; 82962; 84484; 85014; 85018; 85025; 86850; 93005; 96374; 96375; 99283; 99284; J1642; J2405; P9016